=== PATIENT | male | born 1975 | race Two or more races ===

== ENCOUNTER 2024-06-21 23:00 | Inpatient (IN) | payer OTHER ==
[~2024-06-21] VITALS: Ht 175.3 cm; Wt 109.3 kg
[2024-06-21] MEDS ORDERED: NORVASC2.5 M1 PO (23:52)
[2024-06-21] MEDS ORDERED: LOSARTAN POTAS100 MG PO (23:52)
--- NOTE | 2024-06-21 23:53 | NUR ---
PTE ALERTA Y ORIENTADO X3 REFIERE VENIR A MISTY DEBIDO A QUE EL MISMO GOFF ESTADO TNEIENDO ANJEL DOLOR DE AUDI EN EL HEMISFERIO PAPO, DESBALANCE Y ENTUMECIMIENTO EN LA LENGUA A LAS 1600PM.
[2024-06-22] MEDS ORDERED: cloNIDine HCL 0.2 MG TABLET PO STA (00:22)
[2024-06-22] MEDS ORDERED: DEXAMETHASONE SODIUM PHOSPHATE 4 MG/ML VIAL IV SCH (00:30)
[2024-06-22 01:10] LABS: HEMATOCRIT 41.8 % (39.0-48.0); HEMOGLOBIN 14.2 g/dL (13-16.00); MEAN CELL VOLUME 81.2 fL (80.0-100.00); MEAN CORPUSCULAR HEMOGLOBIN 27.5 pg (27.00-32.0); MEAN CORPUSCULAR HGB CONC 33.9 g/dl (32.0-36.0); PLATELET COUNT 174 K/uL (150-450); RED BLOOD COUNT 5.15 M/uL (4.00-6.00); RED CELL DISTRIBUTION WIDTH 13.7 % (11.5-14.5)
--- NOTE | 2024-06-22 01:11 | NUR ---
PTE ALERTA Y ORIENTADO X3. SE EDUCA A PTE SOBRE KHUSHBU DE MUESTRAS Y TRATAMIENTO MEDICO ORDENADO POR MD, PTE REFIERE ENTENDER. SE REALIZAN DEREK DE MUESTRA Y SE ADMINISTRA TRATAMIENTO MEDICO BAJO MEDIDAS ASEPTICAS
[2024-06-22 02:00] LABS: PH,URINE 5.5 (5.0-8.0); URINE APPEARANCE Clear; URINE BILIRRUBIN Negative (NEGATIVE); URINE BLOOD Negative; URINE COLOR Yellow; URINE GLUCOSE Negative (NEGATIVE); URINE KETONE Trace (NEGATIVE); URINE LEUKOCYTE Negative; URINE NITRATE Negative; URINE PROTEIN Negative (NEGATIVE); URINE UROBILINOGEN 0.2 E.U./dl
[2024-06-22 02:07] LABS: URINE EPITHELIAL CELLS 2.5 uL (0.0-38.8); URINE RBC 2.2 uL (0.0-20.8); URINE WBC 5.2 uL (0.0-23.2)
[2024-06-22 02:15] LABS: CALCIUM 9.1 mg/dL (8.5-10.1); CREATININE SERUM 1.2 mg/dL (0.70-1.30); POTASSIUM 3.02 mEq/L (3.5-5.1)
[2024-06-22 02:21] LABS: GFR 63.83
[2024-06-22] MEDS ORDERED: ASPIRIN 325 MG TABLET.EC PO ONE (08:27)
[2024-06-22] MEDS ORDERED: CLOPIDOGREL BISULFATE 75 MG TABLET PO ONE (09:45)
[2024-06-22] MEDS ORDERED: ASPIRIN 325 MG TABLET PO ONE (09:45)
[2024-06-22 10:30] LABS: INR < 0.93; PARTIAL THROMBOPLASTIN TIME 26.7 SECONDS (22.0-34.0); PROTHROMBIN TIME 10.2 SECONDS (9.0-11.5)
[2024-06-22 10:54] LABS: PH,URINE 6.5 (5.0-8.0); URINE APPEARANCE Clear; URINE BILIRRUBIN Negative (NEGATIVE); URINE BLOOD Negative; URINE COLOR Yellow; URINE KETONE Negative (NEGATIVE); URINE LEUKOCYTE Moderate; URINE NITRATE Negative; URINE PROTEIN Trace (NEGATIVE)
[2024-06-22 10:59] LABS: URINE BACTERIA 24.4 uL (0.0-1933); URINE EPITHELIAL CELLS 2.6 uL (0.0-38.8); URINE RBC 2.2 uL (0.0-20.8); URINE WBC 15.3 uL (0.0-23.2)
[2024-06-22 11:06] LABS: COVID-19 AG NEGATIVE (NEGATIVE)
[2024-06-22 11:22] LABS: URINE CAST 0.14 uL (0.0-1.40); URINE GLUCOSE 100 MG/DL (NEGATIVE)
[2024-06-22] MEDS ORDERED: ONDANSETRON HCL 4 MG in 0.9 % SODIUM CHLORIDE 50 ML IV PRN (18:45)
[2024-06-22] MEDS ORDERED: hydrALAZINE HCL 20 MG VIAL IV PRN (18:45)
[2024-06-22] MEDS ORDERED: ACETAMINOPHEN 325 MG TABLET PO PRN (18:45)
[2024-06-22 19:35] VITALS: BP 210/108; O2SAT 98
[2024-06-22] MEDS ORDERED: hydrALAZINE HCL 20 MG VIAL ONE (19:37)
[2024-06-22] MEDS ORDERED: AMLODIPINE BESYLATE 5 MG TABLET PO SCH (21:00)
[2024-06-22 21:41] VITALS: BP 180/90
[2024-06-22 22:59] VITALS: BP 170/94
[2024-06-23 02:58] VITALS: BP 180/110; O2SAT 96
[2024-06-23 04:03] VITALS: BP 188/116
[2024-06-23 08:09] LABS: CHOL HDL RATIO 2.8 (0-5.0); TSH 1.22 uIU/mL (0.358-3.74)
[2024-06-23] MEDS ORDERED: ASPIRIN 81 MG TABLET.EC PO SCH (09:00)
[2024-06-23] MEDS ORDERED: LOSARTAN POTASSIUM 100 MG TABLET PO SCH (09:00)
[2024-06-23] MEDS ORDERED: ATORVASTATIN CALCIUM 40 MG TABLET PO SCH (09:00)
[2024-06-23] MEDS ORDERED: CLOPIDOGREL BISULFATE 75 MG TABLET PO SCH (09:00)
[2024-06-23 09:02] VITALS: BP 154/93
[2024-06-23] MEDS ORDERED: ACETAMINOPHEN 500 MG GEL..CAP PO PRN (11:45)
[2024-06-23 13:05] VITALS: BP 174/102; O2SAT 97
[2024-06-23 14:00] VITALS: BP 154/90
[2024-06-23 17:14] VITALS: BP 165/99
[2024-06-23] MEDS ORDERED: AMLODIPINE BESYLATE 10 MG TABLET PO SCH (21:00)
[2024-06-24 00:55] VITALS: BP 142/82; O2SAT 97
[2024-06-24 09:12] VITALS: BP 173/100
[2024-06-24 12:30] VITALS: BP 164/95
[2024-06-24] MEDS ORDERED: NICOTINE 21MG/24HR PATCH.TD24 TD SCH (12:34)
[2024-06-24] MEDS ORDERED: hydrALAZINE HCL 25 MG TABLET PO SCH (13:00)
[2024-06-24 15:55] LABS: CALCIUM 8.9 mg/dL (8.5-10.1); CREATININE SERUM 0.92 mg/dL (0.70-1.30); GFR 86.73; POTASSIUM 3.46 mEq/L (3.5-5.1)
[2024-06-24 17:52] VITALS: BP 160/88
[2024-06-24 21:43] VITALS: BP 170/80
[2024-06-25 01:22] VITALS: BP 166/95
[2024-06-25 09:49] VITALS: BP 143/78; O2SAT 100
== END 2024-06-25 11:06 | disposition home or self-care (01) | DRG 65 ==
LOC: ER 23:01 → MEDJ 06-22 18:54
PROVIDERS: General Practice; ADMIT Internal Medicine; ATTEND Internal Medicine
PROC: BW28ZZZ Computerized Tomography (CT Scan) of Head (ICD-10-PCS; principal; 2024-06-22)
PROC: B030ZZZ Magnetic Resonance Imaging (MRI) of Brain (ICD-10-PCS; 2024-06-22)
PROC: B246ZZZ Ultrasonography of Right and Left Heart (ICD-10-PCS; 2024-06-22)
PROC: B345ZZZ Ultrasonography of Bilateral Common Carotid Arteries (ICD-10-PCS; 2024-06-22)
PROC: 4A12X4Z Monitoring of Cardiac Electrical Activity, External Approach (ICD-10-PCS; 2024-06-23)
DX: I63.89 Other cerebral infarction (principal); G45.9 Transient cerebral ischemic attack, unspecified; I16.1 Hypertensive emergency; I11.9 Hypertensive heart disease without heart failure; R47.1 Dysarthria and anarthria; Z72.0 Tobacco use; F10.20 Alcohol dependence, uncomplicated
CPT/HCPCS: 70544